=== PATIENT | female | born 1930 | race African-American/Black ===

== ENCOUNTER 2018-01-02 12:52 | Outpatient (CLI) | payer MEDICARE, MEDICAID | END 2018-01-02 12:53 | disposition home or self-care (01) | LOC: BICULT 12:52 | PROVIDERS: ATTEND Nurse Practitioner Family | DX: M79.89 Other specified soft tissue disorders (principal); M79.662 Pain in left lower leg; R07.9 Chest pain, unspecified; Z90.10 Acquired absence of unspecified breast and nipple ==

== ENCOUNTER 2018-10-31 10:33 | Outpatient (CLI) | payer MEDICARE, MEDICAID ==
--- NOTE | 2018-10-31 12:44 | ULT ---
VENOUS ULTRASOUND LEFT UPPER EXTREMITY WITH GRAYSCALE AND COLOR DOPPLER IMAGING AND SPECTRAL ANALYSIS : Indication: Left upper extremity edema/pain. FINDINGS: There is appropriate compressibility and flow within the imaged deep venous system of the left upper extremity. IMPRESSION: No DVT is visualized within the left upper extremity. POS: [facility]
== END 2018-10-31 10:34 | disposition home or self-care (01) ==
LOC: ULT 10:33
PROVIDERS: ATTEND Internal Medicine Medical Oncology
DX: R60.0 Localized edema (principal); M79.602 Pain in left arm; C50.812 Malignant neoplasm of overlapping sites of left female breast
CPT/HCPCS: 36415; 81003; 81015; 87086

== ENCOUNTER 2018-11-01 11:26 | Outpatient (CLI) | payer MEDICARE, MEDICAID ==
--- NOTE | 2018-11-01 12:44 | RAD ---
THREE VIEWS LEFT SHOULDER: COMPARISON: None. HISTORY: Left shoulder arthritis versus metastatic disease. Left shoulder pain. FINDINGS: Three views left shoulder show no evidence of acute fracture or dislocation. There are moderate dege nerative changes in the glenohumeral joint. No obvious lytic or blastic lesions are seen in the [place]el [place] to suggest metastatic disease. 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 POS: C
== END 2018-11-01 11:27 | disposition home or self-care (01) ==
LOC: RAD 11:26
PROVIDERS: ATTEND Internal Medicine Medical Oncology
DX: M79.602 Pain in left arm (principal); R60.0 Localized edema; C50.812 Malignant neoplasm of overlapping sites of left female breast; M19.012 Primary osteoarthritis, left shoulder

== ENCOUNTER 2018-11-13 10:03 | Outpatient (CLI) | payer MEDICARE, OTHER ==
--- NOTE | 2018-11-13 11:21 | BD ---
DEXA BONE MINERAL DENSITOMETRY EXAM, DENSITY STUDY: HISTORY: Postmenopausal FINDINGS: Lumbar Spine: BMD (g/cm2) L1 0.733 T-Score: -2.3 L2 0.807 T-Score: -2.0 L3 0.846 T-Score: -2.2 L4 0.828 T-Score: -2.1 L1-L4 0.805 T-Score: -2.2 Femoral Neck: 0.593 T-Score: -2.3 Total Femur: 0.645 T-Score: -2.4 Impression: 1. 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 2. Ten-year fracture risk for a major osteoporotic fracture is 8.7% and a hip fracture 3%. These fr acture probabilities were calculated for an untreated patient. POS: KASHIF
== END 2018-11-13 10:04 | disposition home or self-care (01) ==
LOC: BICMAMMO 10:03
PROVIDERS: ATTEND Internal Medicine Medical Oncology
DX: Z08 Encounter for follow-up examination after completed treatment for malignant neoplasm (principal); Z13.820 Encounter for screening for osteoporosis; T38.6X5A Adverse effect of antigonadotrophins, antiestrogens, antiandrogens, not elsewhere classified, initial encounter; Z85.3 Personal history of malignant neoplasm of breast; M85.89 Other specified disorders of bone density and structure, multiple sites; R92.1 Mammographic calcification found on diagnostic imaging of breast; Z90.12 Acquired absence of left breast and nipple; Z80.3 Family history of malignant neoplasm of breast
CPT/HCPCS: 77065; 77080; G0279

== ENCOUNTER 2019-11-17 14:34 | Outpatient (CLI) | payer MEDICARE, OTHER ==
--- NOTE | 2019-11-17 15:20 | MMO ---
Right Breast MAMMO Unilat Diag DDI RT+VIJI. CLINICAL HISTORY: Patient is 89 years old and is seen for diagnostic exam. The patient has the following family history of breast cancer: mother, at age 85. The patient has a history of left Mastectomy - malignant. VIEWS: The views performed were: right craniocaudal with tomosynthesis; right mediolateral oblique with tomosynthesis; and right mediolateral with tomosynthesis. FILMS COMPARED: The present examination has been compared to prior imaging studies performed at [facility] on 12/14/2009, 06/28/2010 and 11/13/2018. This study has been interpreted with the assistance of computer-aided detection. MAMMOGRAM FINDINGS: There are scattered fibroglandular densities. There are benign appearing calcifications in the right breast. There are no suspicious masses, suspicious calcifications, or new areas of architectural distortion. IMPRESSION: THERE IS NO MAMMOGRAPHIC EVIDENCE OF MALIGNANCY. A ROUTINE FOLLOW-UP MAMMOGRAM IN 1 YEAR IS RECOMMENDED. THE RESULTS OF THIS EXAM WERE SENT TO THE PATIENT. ACR BI-RADS Category 2 - Benign finding MAMMOGRAPHY NOTE: 1. A negative mammogram report should not delay a biopsy if a dominant of clinically suspicious mass is present. 2. Approximately 10% to 15% of breast cancers are not detected by mammography. 3. Adenosis and dense breasts may obscure an underlying neoplasm. Reported by: BRENDAN ISAAC MD Electonically Signed: [id number]
--- NOTE | 2019-11-17 15:51 | BD ---
BONE DENSITOMETRY: INDICATION: Postmenopausal osteoporosis screening. FINDINGS: Lumbar Spine: BMD (g/cm2) L1 0.595 T-Score: -3.6 L2 0.652 T-Score: -3.4 L3 0.748 T-Score: -3.1 L4 0.758 T-Score: -2.8 L1-L4 0.692 T-Score: -3.2 Total lumbar density 12/11/2018: 0.805. 12/14/2009: 0.864. Femoral Neck: 0.597 T-Score: -2.3 Total Femur: 0.624 T-Score: -2.6 Total femoral density 11/13/2018: 0.645 12/14/2009: 0.762 IMPRESSION: The bone mineral density of the lumbar spine and femoral neck both indicate osteoporosis. POS: C
== END 2019-11-17 14:35 | disposition home or self-care (01) ==
LOC: BICMAMMO 14:34
PROVIDERS: ATTEND Internal Medicine Medical Oncology
DX: Z08 Encounter for follow-up examination after completed treatment for malignant neoplasm (principal); Z13.820 Encounter for screening for osteoporosis; Z85.3 Personal history of malignant neoplasm of breast; N95.8 Other specified menopausal and perimenopausal disorders; M81.0 Age-related osteoporosis without current pathological fracture
CPT/HCPCS: 77065; 77080; G0279

== ENCOUNTER 2019-12-08 11:18 | Outpatient (CLI) | payer MEDICARE, MEDICAID ==
--- NOTE | 2019-12-08 13:12 | CT ---
CT ABDOMEN WITHOUT CONTRAST: HISTORY: Urinary tract infection. COMPARISON: Reference is made to a PET CT 01/13/2017. FINDINGS: Lung bases are relatively clear. No significant pericardial effusion. The distal thoracic aorta is extremely tortuous. No hydroureteral nephrosis or nephroureteral lithiasis. No secondary evidence of a recently passed s tone. Multiple hypodensities of the kidneys. There is a peripheral right interpolar renal hyperdensity measuring 66 Hounsfield units and 12 mm in size not completely evaluated on this exam. Noncontrast evaluation of the spleen is unremarkable. T here is some debris within the gallbladder. Calcified granuloma of the left lobe of the liver. Small to moderate sliding hiatal hernia. Aortic contour is nonaneurysmal. No intraperitoneal periao rtic adenopathy. No dilated loops of large or small bowel. IMPRESSION: 1. No hydroureteral nephrosis or nephroureteral lithiasis. Secondary evidence of recently passed st one. 2. Bilateral renal hypodensities suggestive of cysts. 3. An 11-12 mm hyperdensity 50% exophytic posterior cortex superior pole of the right kidney not def initively a cyst. Dedicated renal protocol MRI is recommended in 6 months time. 4. High-grade degenerative changes of the thoracolumbar junction. No acute osseous abnormality. POS: [facility]
== END 2019-12-08 11:19 | disposition home or self-care (01) ==
LOC: BICCT 11:18
PROVIDERS: ATTEND Nurse Practitioner Family
DX: N39.0 Urinary tract infection, site not specified (principal); N28.89 Other specified disorders of kidney and ureter; M47.815 Spondylosis without myelopathy or radiculopathy, thoracolumbar region
CPT/HCPCS: 74150

== ENCOUNTER 2020-05-07 08:57 | Outpatient (CLI) | payer MEDICARE ==
--- NOTE | 2020-05-07 14:38 | NM ---
EXAM: NM Bone Scan STANDARD PROVIDED CLINICAL HISTORY: Malignant neoplasm of overlapping sites of left female breast. COMPARISON: None FINDINGS: There are focal areas of increased uptake seen in anterior left-sided ribs with areas of uptake in an overall linear distribution, and findings are more likely related to prior injury/trauma. Increased uptake is seen in the bilateral shoulders and left knee in a degenerative pattern. There is also abnormal increased uptake of radiotracer seen involving the right hip and acetabular region. Prior PET CT scan examination in 2017 demonstrated asymmetric osteoarthritis right hip compared to le ft which probably accounts for this finding. No additional focal areas of abnormal uptake of radiotracer are seen. Initial imaging demonstrated urine contamination with distention of urinary bladder. Additional imagi ng was performed over the pelvis after removal of urinary contamination without focal area of abnormal uptake of radiotracer seen. There is increased activity seen overlying the region of the left maxillary antrum and in the region of the ethmoidal air cells which may be attributable to sinus disease. Expected activity is seen in the region of the renal collecting systems and urinary bladder. Left con vex curvature thoracolumbar spine is seen. IMPRESSION: 1. No definite scintigraphic findings to suggest osseous metastatic disease. 2. Focal areas of increased uptake of radiotracer within left anterior ribs which is thought to more likely be on the basis of prior injury as opposed to metastatic lesions. This would be difficult to entirely exclude, and follow-up evaluation can be performed. 3. Prominent degenerative changes right hip. 4. Increased uptake overlying the region of paranasal sinuses which may be related to sinus disease.
== END 2020-05-07 08:58 | disposition home or self-care (01) ==
LOC: NM 08:57
PROVIDERS: ATTEND Internal Medicine Medical Oncology
DX: C50.812 Malignant neoplasm of overlapping sites of left female breast (principal); M79.606 Pain in leg, unspecified; M81.8 Other osteoporosis without current pathological fracture; M16.11 Unilateral primary osteoarthritis, right hip
CPT/HCPCS: 78306; A9503